=== PATIENT | female | born 1950 | race Caucasian/White ===

== ENCOUNTER 2019-07-15 12:38 | Emergency (ER) | payer MEDICARE, SELFPAY ==
[2019-07-15 12:43] VITALS: BP 210/99; PULSE 75; RESP 17; TEMP 36.6; O2SAT 99; BMI 21.6
--- NOTE | 2019-07-15 13:04 | CTR_ITS ---
PROCEDURE INFORMATION: Exam: CT Head Without Contrast Exam date and time: 07/15/2019 1:16 PM Age: 69 years old Clinical indication: Dizziness; Patient HX: Vertigo x 1 month; Additional info: High BP, dizzy TECHNIQUE: Imaging protocol: Computed tomography of the head without contrast. Total DLP: 750.25 mGy-cm Radiation optimization: All CT scans at this facility use at least one of these dose optimization techniques: automated exposure control; mA and/or kV adjustment per patient size (includes targeted exams where dose is matched to clinical indication); or iterative reconstruction. COMPARISON: CTA Head [id number] 11/04/2014 10:43 AM FINDINGS: Brain: No acute intracranial hemorrhage, cerebral edema, or midline shift. Ventricles: No hydrocephalus. Bones/joints: No acute fracture. Sinuses: No acute sinusitis. Mastoid air cells: Visualized mastoid air cells are well aerated. Soft tissues: Unremarkable. CT/CT head wo con* [id number] IMPRESSION: No acute intracranial abnormality. Radiation Dose CTDIVOL = (mGy): DLP = 750.25 (mGy-cm)
--- NOTE | 2019-07-15 13:04 | XR_ITS ---
WS: [id number] Portable AP upright chest, 07/15/2019 Clinical Data: high bp, dizzy Comparison: Portable chest, 03/28/2018. Findings: No nodules, masses or effusions are seen. The heart is normal. The pulmonary vascularity is not increased. No pneumonia or pneumothorax is seen. The aortic arch is slightly tortuous. XR/XR chest 1V portable [id number] Impression: Atherosclerosis.
--- NOTE | 2019-07-15 13:05 | ECG_ITS ---
Measurements Intervals [place] Rate: 67 P: 69 OR: 139 QRS: 51 QRSD: 94 T: 48 QT: 390 QTc: [address] DEPRESSION [0.05+ mV ST DEPRESSION] Compared to ECG 03/28/2018 19:44:15 ST (T wave) deviation now present Sinus tachycardia no longer present T-wave abnormality no longer present Electronically Signed On 07-15-2019 22:16:50 [employer] OPERATOR by Evelyne Deal M.D. [email or web address]
[2019-07-15 13:55] LABS: Add Urine Microscopic? YES; Bilirubin Urine Neg (NEGATIVE); Blood Urine 3+ (Negative); Glucose Urine UA Norm (Normal); Ketones Urine Negative (Negative); Leukocyte Esterase Urine Negative (Negative); Nitrate Urine Negative (Negative); Protein Urine Neg (Negative); Specific Gravity, Urine 1.015 (1.005-1.030); Urine Appearance Clear (CLEAR); Urine Color Yellow (Yellow); Urobilinogen Urine Norm (Negative)
[2019-07-15 13:58] LABS: Add Urine Culture? Yes; Bacteria Urine 1+; Mucus Urine TRACE; RBC Urine 25-40 /hpf (0-2); Squamous Epithelial Cell Urine 0-4 (0-5); WBC Urine 15-25 /hpf (0-5)
[2019-07-15 14:15] LABS: Basophils % 0.7 %; Eosinophils # 0.1 10^3/uL (0.0-0.8); Eosinophils % 2.2 %; Hematocrit 39.6 % (37.0-47.0); Hemoglobin 12.9 g/dL (11.5-15.3); Lymphocytes # 1.5 10^3/uL (0.8-4.8); Lymphocytes % 27.8 %; Mean Corpuscular HGB Conc 32.6 g/dL (30.0-36.0); Mean Corpuscular Hemoglobin 30.1 pg (28.0-34.0); Mean Corpuscular Volume 92.3 fL (81-99); Mean Platelet Volume 9.8 fL (7.4-10.4); Monocytes # 0.3 10^3/uL (0.2-0.9); Monocytes % 6.2 %; Neutrophils # 3.4 10^3/uL (1.8-7.7); Neutrophils % 62.9 %; Nucleated Red Blood Cells % 0 %; Platelet Count 219 10^3/cmm (130-400); Red Blood Count 4.29 10^6/uL (4.1-5.3); Red Cell Distribution Width 12.2 % (12.1-15.1); White Blood Count 5.5 10^3/uL (4.0-10.0)
--- NOTE | 2019-07-15 14:16 | ED_ITS ---
Entered by Tali Blum, acting as scribe for Chaya Olea DO Jul 15, 2019 12:38 HPI - General Adult General: Chief complaint: General Medical Stated complaint: high bp Time Seen by Provider: 07/15/19 14:13 Source: patient Mode of arrival: ambulatory Limitations: no limitations History of Present Illness: HPI narrative: 69 yo Female presents to ED with complaint of dizziness and elevated blood pressure. Pt states that she has vertigo and for the past several weeks when she tries to get up in the morning she cannot get up due to her dizziness. Pt states that she noticed the past day or so that her blood pressure has been creeping up. Pt states that she is not on anything for her vertigo. Pt states that she has optic neuropathy and she goes to see Dr. Mayfield for a follow up next month. MD complaint: elevated blood pressure Onset (ago): day(s) Location: head Radiation: non-radiation Relieving factors: none Exacerbating factors: movement Associated symptoms: Deny chest pain, dyspnea, headache(s), malaise, nausea, rash or vomiting Review of Systems Const: Denies: fever, chills, change in appetite or malaise Eyes: Denies: change in vision, blurry vision, eye discharge or eye redness ENMT: Denies: throat pain, uvular edema, painful swallowing, mouth pain, dental pain, nasal congestion or facial/sinus pain Card: Denies: chest pain, irregular heart rhythm, swelling of feet/ankles, shortness of breath on exertion, shortness of breath when lying down or leg pain with exertion Resp: Denies: shortness of breath, productive cough, wheezing or coughing up blood GI: Denies: abdominal pain, nausea, vomiting, diarrhea, constipation or fecal incontinence : Denies: flank pain, difficulty urinating, painful urination, urinary frequency, urinary urgency or urinary hesitancy Musc: Denies: neck pain, back pain, extremity pain or extremity swelling Skin/Breast: Denies: rash, itching, redness, yellow skin or dry skin Neuro: Denies: headache, numbness in extremities, weakness in extremities, changes in sensation, lack of coordination or difficulty walking Psych: Denies: anxiety, depression, mood swings, panic attacks, sleeping less, suicidal ideation or homicidal ideation Endo: Denies: excessive urination, excessive thirst or tired all the time Malachi/Lymph: Denies: easy bruising, petechiae or enlarged lymph nodes All/Imm: Denies: hives, throat swelling, facial swelling, acute wheezing or seasonal allergies PFSH ED PFSH: Statuses (acute, chronic, etc) shown below reflect problem list status as previously entered and may not be historically accurate Medical History (Updated 07/15/19 @ 14:42 by Chaya Olea DO) Optic neuropathy (Acute) Social History Smoking and tobacco status: never smoked Physical Exam Const: COMMON NORMALS: no apparent distress, oriented x3, no limitations, healthy appearing, alert and well nourished GENERAL APPEARANCE: cooperative, comfortable, well kempt and well developed ORIENTATION/CONSCIOUSNESS: Yes awake, Yes oriented to person, Yes oriented to place and Yes oriented to time HENMT: COMMON NORMALS: normocephalic, head/scalp atraumatic, hearing grossly normal bilaterally, external ears normal, EAC's normal, TM's normal bilaterally, external nose normal, nasal mucous membranes and turbinates normal, moist oral mucous membranes, oropharynx normal, dentition normal and gingiva normal HEAD & SCALP: normal to inspection, normocephalic and atraumatic FACE & SINUS: normal facial exam NOSE: external nose normal and nasal mucous membranes and turbinates normal EXTERNAL EAR: Yes external ears normal EXTERNAL AUDITORY CANAL: EAC's normal TYMPANIC MEMBRANE: TM's normal bilaterally MOUTH: oral and palatal mucosa normal, lip normal and tongue normal THROAT: no uvular edema Eye: COMMON NORMALS: PERRL, EOMs intact bilaterally, conjunctivae normal, no scleral icterus and normal visual [place] by confrontation GENERAL EYE: normal appearance of both eyes and normal light reflex VISUAL ACUITY: Yes acuity normal ALIGNMENT: Yes alignment normal PERIORBITAL: periorbital findings normal EYELID: eyelids normal CONJUNCTIVA: Yes conjunctivae normal SCLERA: sclerae normal PUPIL: Yes PERRL and Yes accommodation reflex normal DIRECT OPHTHALMOSCOPY: Yes normal light reflex Neck/C-Spine: COMMON NORMALS: full ROM, no lymphadenopathy, supple, no meningeal signs and no JVD GENERAL: Yes normal visual inspection CAROTIDS: Yes normal carotid upstroke CERVICAL SPINE: Yes cervical ROM normal Lymph: LYMPHATIC: no lymphadenopathy noted Chest: COMMONS NORMALS: inspection of chest normal CHEST: Yes symmetrical chest wall rise Resp: COMMON NORMALS: normal respiratory effort, no retractions, no use of accessory muscles and clear to auscultation bilaterally EFFORT & INSPECTION: Yes able to speak in complete sentences and Yes symmetric chest movement AUSCULTATION: clear to auscultation bilaterally Cardio: COMMON NORMALS: no JVD, regular rate, regular rhythm, S1 normal heart sound, S2 normal heart sound, no murmurs and peripheral pulses 2+ throughout RATE: regular rate RHYTHM: regular rhythm HEART SOUNDS: S1 normal and S2 normal PERIPHERAL PULSES: pulses 2+ throughout GI: COMMON NORMALS: normal to inspection, nondistended, normoactive bowel sounds and non-tender : COMMON NORMALS: Yes no CVA tenderness BLADDER/KIDNEY EXAM: Yes no CVA tenderness Back/Pelvis: COMMON NORMALS: no CVA tenderness, thoracic and lumbar spine normal to inspection, no thoracic nor lumbar tenderness and thoraco-lumbar ROM normal Extremity: COMMON NORMALS: normal to inspection, full ROM, normal capillary refill, no calf tenderness and no pedal edema Neuro: COMMON NORMALS: oriented x3, CN's II-XII intact bilaterally, moves all extremities, no focal motor deficits, no sensory deficits noted and gait normal SENSORIUM/ORIENTATION: Yes alert, Yes oriented to person, Yes oriented to place and Yes oriented to time MENINGEAL SIGNS: Yes no meningeal signs SPEECH: speech normal GAIT: Yes normal gait MOTOR EXAM: strength 5/5 throughout, no pronator drift and no tremor noted Psych: COMMON NORMALS: mental status grossly normal, thought process normal, cooperative, affect normal, speech normal and activity/motor behavior normal APPEARANCE: Yes well kempt SPEECH: Yes normal speech THOUGHT PROCESS: normal thought process THOUGHT CONTENT: Yes normal thought content INSIGHT: insight good Skin: COMMON NORMALS: no rashes or lesions noted, no wounds, skin turgor normal and no jaundice GENERAL SKIN EXAM: no rashes or lesions noted and turgor normal Course ED course: After PO Hydralazine BP 177/78. Patient resting after valium. Labs wnl, will treat with prn Clonidine and valium, advised close PCP follow up and discuss MR head as needed. Vital Signs: Vital signs: Vital Signs Temperature 97.8 F 07/15/19 12:43 Pulse Rate 75 02/07/20 12:43 Respiratory Rate 17 07/15/19 12:43 Blood Pressure 210/99 07/15/19 12:43 Pulse Oximetry 99 07/15/19 12:43 MDM - General Adult Differential Diagnosis: Differential Diagnosis: CVA, vertigo, HTN emergency or urgency, cerebral lesion. 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 Discussed need to do this out patient as her symptoms have worsened over the past few weeks and concern for lesion is in my differential Lab Data: Labs: Lab Results 07/15/19 07/15/19 07/15/19 Range/Units 13:23 13:55 13:55 WBC 5.5 (4.0-10.0) 10^3/ uL RBC 4.29 (4.1-5.3) 10^6/u L Hgb 12.9 (11.5-15.3) g/dL Hct 39.6 (37.0-47.0) % MCV 92.3 (81-99) fL MCH 30.1 (28.0-34.0) pg MCHC 32.6 (30.0-36.0) g/dL RDW 12.2 (12.1-15.1) % Plt Count 219 (130-400) 10^3/c mm MPV 9.8 (7.4-10.4) fL Neut % (Auto) 62.9 % Lymph % (Auto) 27.8 % [place] % (Auto) 6.2 % Eos % (Auto) 2.2 % Baso % (Auto) 0.7 % Neut # (Auto) 3.4 (1.8-7.7) 10^3/u L Lymph # (Auto) 1.5 (0.8-4.8) 10^3/u L [place] # (Auto) 0.3 (0.2-0.9) 10^3/u L Eos # (Auto) 0.1 (0.0-0.8) 10^3/u L Baso # (Auto) 0.0 (0.0-0.1) 10^3/u L Nucleated RBC % (a uto) 0 % Nucleated RBCs # 0.0 /100WBC Sodium 143 (136-145) mmol/L Potassium 4.4 (3.5-5.1) mmol/L Chloride 108 H (98-107) mmol/L Carbon Dioxide 26 (22-29) mmol/L Anion Gap 13.4 (5-19) BUN 19 (8-23) mg/dL Creatinine 0.9 (0.5-0.9) mg/dL GFR Calculation 62.3 L (90-130) mL/min Glucose 111 (65-115) mg/dL Calcium 9.4 (8.5-10.5) mg/dL Total Bilirubin 0.3 (0.15-1.2) mg/dL AST 22 (0-32) U/L ALT 13 (0-33) U/L Alkaline Phosphata se 96 (35-105) IU/L Troponin T Baselin e (0-10) ng/mL NT-Pro-B Natriuret Pep 249 H (0-125) pg/mL Total Protein 7.4 (6.6-8.7) g/dL Albumin 4.3 (3.5-5.2) g/dL Globulin 3.1 (1.3-4.6) g/dL Urine Color Yellow (Yellow) Urine Appearance Clear (CLEAR) Urine pH 6.0 (5-7) Ur Specific Gravit y 1.015 (1.005-1.030) Urine Protein Neg (Negative) Urine Glucose (UA) Norm (Normal) Urine Ketones Negative (Negative) Urine Occult Blood 3+ H (Negative) Urine Nitrate Negative (Negative) Urine Bilirubin Neg (NEGATIVE) Urine Urobilinogen Norm (Negative) mg/dL Ur Leukocyte Lilly ase Negative (Negative) Urine RBC 25-40 H (0-2) /hpf Urine WBC 15-25 H (0-5) /hpf Ur Squamous Epith Cells 0-4 H (0-5) Urine Bacteria 1+ H (NONE) Urine Mucus Trace 07/15/19 Range/Units 13:55 WBC (4.0-10.0) 10^3/ uL RBC (4.1-5.3) 10^6/u L Hgb (11.5-15.3) g/dL Hct (37.0-47.0) % MCV (81-99) fL MCH (28.0-34.0) pg MCHC (30.0-36.0) g/dL RDW (12.1-15.1) % Plt Count (130-400) 10^3/c mm MPV (7.4-10.4) fL Neut % (Auto) % Lymph % (Auto) % [place] % (Auto) % Eos % (Auto) % Baso % (Auto) % Neut # (Auto) (1.8-7.7) 10^3/u L Lymph # (Auto) (0.8-4.8) 10^3/u L [place] # (Auto) (0.2-0.9) 10^3/u L Eos # (Auto) (0.0-0.8) 10^3/u L Baso # (Auto) (0.0-0.1) 10^3/u L Nucleated RBC % (a uto) % Nucleated RBCs # /100WBC Sodium (136-145) mmol/L Potassium (3.5-5.1) mmol/L Chloride (98-107) mmol/L Carbon Dioxide (22-29) mmol/L Anion Gap (5-19) BUN (8-23) mg/dL Creatinine (0.5-0.9) mg/dL GFR Calculation (90-130) mL/min Glucose (65-115) mg/dL Calcium (8.5-10.5) mg/dL Total Bilirubin (0.15-1.2) mg/dL AST (0-32) U/L ALT (0-33) U/L Alkaline Phosphata se (35-105) IU/L Troponin T Baselin e 7 (0-10) ng/mL NT-Pro-B Natriuret Pep (0-125) pg/mL Total Protein (6.6-8.7) g/dL Albumin (3.5-5.2) g/dL Globulin (1.3-4.6) g/dL Urine Color (Yellow) Urine Appearance (CLEAR) Urine pH (5-7) Ur Specific Gravit y (1.005-1.030) Urine Protein (Negative) Urine Glucose (UA) (Normal) Urine Ketones (Negative) Urine Occult Blood (Negative) Urine Nitrate (Negative) Urine Bilirubin (NEGATIVE) Urine Urobilinogen (Negative) mg/dL Ur Leukocyte Lilly ase (Negative) Urine RBC (0-2) /hpf Urine WBC (0-5) /hpf Ur Squamous Epith Cells (0-5) Urine Bacteria (NONE) Urine Mucus Imaging Data^: CT Head: Radiologist's impression: [place] [address] CT Scan Report Signed Patient: Zuleyma Hilton #: [id number] : [id number]#:[id number] Age/Sex: 69 / FADM Date: 07/15/19 Loc: ERRoom/Bed: Attending Dr: Ordering Provider/Ordering MD: Gilberto Putnam NP Date of Service: 07/15/19 Procedure(s): CT head wo con* [id number] Accession Number(s): [id number] Report Number: [id number] PROCEDURE INFORMATION: Exam: CT Head Without Contrast Exam date and time: 07/15/2019 1:16 PM Age: 69 years old Clinical indication: Dizziness; Patient HX: Vertigo x 1 month; Additional info: High BP, dizzy TECHNIQUE: Imaging protocol: Computed tomography of the head without contrast. Total DLP: 750.25 mGy-cm Radiation optimization: All CT scans at this facility use at least one of these dose optimization techniques: automated exposure control; mA and/or kV adjustment per patient size (includes targeted exams where dose is matched to clinical indication); or iterative reconstruction. COMPARISON: CTA Head [id number] 11/04/2014 10:43 AM FINDINGS: Brain: No acute intracranial hemorrhage, cerebral edema, or midline shift. Ventricles: No hydrocephalus. Bones/joints: No acute fracture. Sinuses: No acute sinusitis. Mastoid air cells: Visualized mastoid air cells are well aerated. Soft tissues: Unremarkable. CT/CT head wo con* [id number] IMPRESSION: No acute intracranial abnormality. Radiation Dose CTDIVOL = (mGy): DLP = 750.25 (mGy-cm) Dictated By:Abdoulaye Hough MD Signed By:Abdoulaye Hough MDSigned Date/Time:07/15/19 1346 DD/ 1345 CXR: Radiologist's impression: [address] [address] XRay Report Signed Patient: Zuleyma Hilton #: [id number] : [id number]#:[id number] Age/Sex: 69 / FADM Date: 07/15/19 Loc: ERRoom/Bed: Attending Dr: Ordering Provider/Ordering MD: Gilberto Putnam NP Date of Service: 07/15/19 Procedure(s): XR chest 1V portable [id number] Accession Number(s): [id number] Report Number: [id number] WS: [id number] Portable AP upright chest, 07/15/2019 Clinical Data: high bp, dizzy Comparison: Portable chest, 03/28/2018. Findings: No nodules, masses or effusions are seen. The heart is normal. The pulmonary vascularity is not increased. No pneumonia or pneumothorax is seen. The aortic arch is slightly tortuous. XR/XR chest 1V portable [id number] Impression: Atherosclerosis. Dictated By:Janette Devlin MD Signed By:Janette Devlin MDSigned Date/Time:07/15/19 133 DD/ 133 Discharge Plan Discharge Patient Disposition: Home, Self-Care Clinical Impression: Vertigo, Postural dizziness Hypertension Qualifiers: Hypertension type: unspecified Qualified Code(s): I10 - Essential (primary) hypertension Condition: Stable Prescriptions: New clonidine HCl 0.1 mg tablet 0.1 mg PO TID Qty: 30 RF: 0 Valium 5 mg tablet 5 mg PO TID PRN (Reason: vertigo) Qty: 20 RF: 0 Discharge Orders: Discharge Order (Routine); Ordered 07/15/19 Ordered By: Chaya Olea Referrals: Karlo Ennis DO [Family Provider] - Discharge Diet: Usual diet Discharge Activity: Resume usual activity Patient Instructions: Benign Paroxysmal Positional Vertigo (ED), Hypertension (ED), Dizziness (ED) Coding Level of Care Code ED Car Hop for Chg Fwd Exam Problem Focused The documentation recorded by the Viktoria rico Carmen, accurately reflects the service I personally performed and the decisions made by Emmie heredia Amanda, DO Jul 15, 2019 12:38
[2019-07-15 14:27] LABS: Troponin(5th) Baseline 7 ng/mL (0-10)
[2019-07-15 14:34] LABS: Alanine Aminotransferase 13 U/L (0-33); Albumin Level 4.3 g/dL (3.5-5.2); Alkaline Phosphatase 96 IU/L (35-105); Anion Gap 13.4 (5-19); Aspartate Amino Transferase 22 U/L (0-32); Blood Urea Nitrogen 19 mg/dL (8-23); Calcium 9.4 mg/dL (8.5-10.5); Carbon Dioxide 26 mmol/L (22-29); Chloride 108 mmol/L (98-107); Creatinine Clr Calc Pharmacy 54.5764; Globulin 3.1 g/dL (1.3-4.6); Glomerular Filtration Rate 62.3 mL/min (90-130); Glucose 111 mg/dL (65-115); NT Pro B Type Natriuretic Pept 249 pg/mL (0-125); Potassium 4.4 mmol/L (3.5-5.1); Sodium 143 mmol/L (136-145); Total Bilirubin 0.3 mg/dL (0.15-1.2); Total Protein 7.4 g/dL (6.6-8.7)
[2019-07-15] MEDS: hyDRALAzine 10 mg Tablet PO (14:34)
[2019-07-15 15:21] LABS: Magnesium 2.1 mg/dL (1.7-2.3); Thyroid Stimulating Hormone 4.32 uIU/mL (0.27-4.20)
[2019-07-15 15:26] VITALS: BP 177/78; PULSE 65; RESP 18; O2SAT 97
--- NOTE | 2019-07-15 19:05 | ECG_ITS ---
Measurements Intervals [place] Rate: 64 P: 67 RI: 138 QRS: 52 QRSD: 90 T: 48 QT: 406 QTc: [address] DEPRESSION [0.05+ mV ST DEPRESSION] Compared to ECG 03/28/2018 19:44:15 ST (T wave) deviation now present Sinus tachycardia no longer present T-wave abnormality no longer present Electronically Signed On 07-15-2019 22:19:44 MENTAL HEALTH PROFESSIONAL by Evelyne Deal M.D. [email or web address]
== END 2019-07-15 15:18 | disposition home or self-care (01) ==
PROVIDERS: Nurse Practitioner Family; Emergency Provider Emergency Medicine; Family Provider Electrodiagnostic Medicine
DX: R42 Dizziness and giddiness (principal); I10 Essential (primary) hypertension
CPT/HCPCS: 36415; 70450; 71045; 80053; 81001; 83735; 83880; 84443; 84484; 85025; 87086; 93005; 99282; 99284; A9270

== ENCOUNTER 2019-12-27 08:26 | Outpatient (CLI) | payer MEDICARE, SELFPAY ==
--- NOTE | 2019-12-27 08:15 | XRR_ITS ---
PROCEDURE INFORMATION: Exam: XR Abdomen, 1 View Exam date and time: 12/27/2019 8:42 AM Age: 69 years old Clinical indication: Condition or disease; Kidney or ureter condition; Calculus (stone) in kidney; Patient HX: Follow up kidney stone TECHNIQUE: Imaging protocol: XR of the abdomen. Views: Frontal supine view of the abdomen. 1 View. COMPARISON: CR XR KUB [id number] 12/23/2018 9:02 AM FINDINGS: Gastrointestinal tract: bowel gas pattern is nonspecific. Air filled large bowel including distal rectal gas. Moderate amount stool throughout the large bowel. Organs: Rounded calcification 8 mm in the region of the upper pole left kidney. Bones/joints: Calcification of approximately 8 mm adjacent to the transverse process of L4. Possibly of ureteric origin. Consider CT if indicated. XR/XR KUB [id number] IMPRESSION: 1. Bowel gas pattern is nonspecific. Air filled large bowel including distal rectal gas. 2. Moderate amount stool throughout the large bowel. 3. Calcification of approximately 8 mm adjacent to the transverse process of L4. Possibly of ureteric origin. Consider CT if indicated. 4. Rounded calcification 8 mm in the region of the upper pole left kidney.
== END 2019-12-27 08:27 | disposition home or self-care (01) ==
PROVIDERS: Family Provider Electrodiagnostic Medicine; PCP Electrodiagnostic Medicine; Visit Provider Urology
DX: N20.0 Calculus of kidney (principal)
CPT/HCPCS: 74018; 81001

== ENCOUNTER 2020-01-02 12:36 | Outpatient (CLI) | payer MEDICARE, SELFPAY ==
--- NOTE | 2020-01-02 12:45 | US_ITS ---
WS: [id number] ULTRASOUND RENAL TECHNIQUE: Ultrasound examination of both kidneys. CLINICAL INFORMATION: Stones COMPARISON: None. FINDINGS: RIGHT: Right kidney is normal in size and appearance. Right inferior pole cyst measuring 2.1 x 1.4 x 2.1 cm Echogenicity: Normal. Cortical thickness: 1.0 cm; Normal. Hydronephrosis: None. Perinephric fluid: None. Right kidney measures: 10.0 cm x 4.5 cm x 3.9 cm. LEFT: Left kidney is normal in size and appearance. Echogenicity: Normal. Cortical thickness: 1.3 cm; Normal. Hydronephrosis: Moderate Perinephric fluid: None. Left kidney measures: 9.3 cm x 3.9 cm x 4.3 cm. Normal visualized aorta. US/US renal BI* [id number] IMPRESSION: 1. Moderate left hydronephrosis with dilatation of the renal pelvis and partia lly visualized proximal ureter. This can be further evaluated with CT. 2. No hydronephrosis in right kidney. 3. Diffuse bladder wall thickening with partial decompressed bladder can be se en with chronic cystitis. 4. Right inferior pole renal cyst measuring 2.1 x 2.1 cm
--- NOTE | 2020-01-02 13:00 | XRR_ITS ---
PROCEDURE INFORMATION: Exam: XR Abdomen, 1 View Exam date and time: 01/02/2020 1:28 PM Age: 69 years old Clinical indication: Condition or disease; Kidney or ureter condition; Other: Stones TECHNIQUE: Imaging protocol: XR of the abdomen. Views: Frontal supine view of the abdomen. 1 View. COMPARISON: CR XR KUB [id number] 12/27/2019 8:36 AM FINDINGS: Gastrointestinal tract: There is stool throughout the colon. No bowel obstruction or wall thickening. Organs: There is calcification in the superior left kidney as before. Bones/joints: Unremarkable. XR/XR KUB [id number] IMPRESSION: There are no acute concerning abnormalities.
== END 2020-01-02 12:37 | disposition home or self-care (01) ==
LOC: RAD 12:38
PROVIDERS: Family Provider Electrodiagnostic Medicine; PCP Electrodiagnostic Medicine; Visit Provider Urology
DX: N20.0 Calculus of kidney (principal); N28.1 Cyst of kidney, acquired; N13.30 Unspecified hydronephrosis
CPT/HCPCS: 74018; 76770; 81001

== ENCOUNTER 2020-01-09 13:35 | Day surgery (SDC) | payer MEDICARE, SELFPAY ==
[2020-01-09] VITALS (7 sets, daily range): BP systolic 147–169; BP diastolic 72–81; PULSE 55–71; RESP 13–20; TEMP 36.2–36.6; O2SAT 98–100
--- NOTE | 2020-01-09 13:22 | XRR_ITS ---
PROCEDURE INFORMATION: Exam: XR Abdomen, 1 View Exam date and time: 01/09/2020 1:37 PM Age: 69 years old Clinical indication: Screening exam; Other: Pre op eswl; Additional info: Preop eswl TECHNIQUE: Imaging protocol: XR of the abdomen. Views: Frontal supine view of the abdomen. 1 View. COMPARISON: CR XR KUB [id number] 01/02/2020 1:23 PM FINDINGS: Gastrointestinal tract: Normal. No bowel dilation. Organs: There are multiple urinary tract stones present in the upper pole collecting system of the left kidney a stone is present measuring 5.6 mm. In the left ureter 2 stones are present at the level of the L4 transverse process on the left measuring 5 mm and 8.5 mm. Comparison to prior examination the upper pole caliceal stone in the left kidney was present and appears similar. There was 1 stone in the left ureter measuring 8.3 mm near the left L4 transverse process. Bones/joints: Unremarkable. XR/XR KUB [id number] IMPRESSION: 1. Multiple urinary tract stones as described. 2. Negative for acute GI abnormalities. 3. Unremarkable bones
[2020-01-09] MEDS: sodium chloride 0.9% 1,000 ML 30 ML IV (13:58)
--- NOTE | 2020-01-09 14:02 | ANES.PREANE2 ---
Pre-Anesthetic Assessment Pre-Anesthetic Assessment: Height/Weight: Height 1.65 m Weight 61.235 kg Temp Pulse Resp BP Pulse Ox 98 F 65 18 169/77 99 01/09/20 13:45 01/09/20 13:45 01/09/20 13:45 01/09/20 13:45 01/09/20 13:45 Preop Diagnosis: Left ureteral and renal stone Proposed Procedure: Operation Date: 01/09/20 14:40 Proposed Procedures p Cystoscopy 91858 [id number] 51020 N20.1(Left) - Deepak Moraes MD s Retrograde Pyelogram(Left) - Deepak Moraes MD s ESWL(Not Applicable) - Deepak Moraes MD Familial anesthetic complications: none Was Beta Tashia taken within 24 hours: Yes Last intake: Intake Last Liquid Date 01/09/20 Last Liquid Time 10:00 (gatorade) Last Solid Date 01/09/20 Last Solid Time 07:00 (jello) Social: Social History: No alcohol and No tobacco Exam: Pre-Anes Outpt Exam: alert, oriented x 3, clear to auscultation bilaterally and regular rate & rhythm Airway: Cervical ROM: WNL MP: 3 Dentition: Full Pulmonary: Pulmonary: None reported CV/HEM: CV/HEM: HTN : : None reported Hepatic: Hepatic: None reported GI: GI: GERD and Hiatus hernia Musc/skel: Musc/skel: None reported Neuropsych: Comments: optic neuropathy (HTN) Anesthetic Plan: ASA status: 2 Anesthesia: General Risk of > 500 ml blood loss (7ml/kg in children): No Meds/Allergies Current Medications: Current Medications Generic Name Dose Route Start Last Admin Trade Name Freq PRN Reason Stop Dose Admin Sodium Chloride 1,000 mls @ 30 ml s/hr 01/09/20 13:30 01/09/20 13:58 Sodium Chloride 0.9% IV 01/10/20 13:29 30 mls/hr .Q24H KALE Administration PFSH Anesthesia PFSH: Medical History Arthritis Left ureteral calculus Optic neuropathy Renal calculus Status post extracorporeal shock wave therapy Surgical History H/O dilation and curettage History of hysterectomy Family History Father , in his 70's Myocardial infarction (lateral wall) Mother , at age 83 Cancer oral Social History Smoking and tobacco status: never smoked Alcohol intake: never Marital status: Current occupational status: retired History of recent travel: No Data Anesthesia Cardiac Studies: No Data to Display
--- NOTE | 2020-01-09 14:38 | W.PM.OPSUD ---
Surgery/Procedure H&P Update DATE OF PROCEDURE: January 09, 2020 DATE H&P PERFORMED: 01/02/20 H&P UPDATE INFORMATION: I have reviewed H&P completed within last 30 days, I have examined patient prior to procedure, No changes to prior documentation and H&P is in [facility] [place] date indicated PREOP DIAGNOSIS: Left ureteral and renal stone PLANNED PROCEDURE: Operation Date: 01/09/20 14:40 Proposed Procedures p Cystoscopy 16643 68165 26453 N20.1(Left) - Deepak Moraes MD s Retrograde Pyelogram(Left) - Deepak Moraes MD s ESWL(Not Applicable) - Deepak Moraes MD
[2020-01-09] MEDS: levofloxacin-dextrose 5 % 500 MG/100 ML PREMIX 100 MG IV (14:45)
[2020-01-09] MEDS: iohexol 300 mg/mL 50 mL Btl (OR ONLY) XX (15:05)
--- NOTE | 2020-01-09 16:06 | PM.OP ---
Operative Report Date of procedure: January 09, 2020 Pre-op Diagnosis: Left ureteral and renal stone Post-op diagnosis: same Procedure Done: 1. Cystoscopy with left retrograde ureteropyelogram 2. Left ureteral stent placement (4.7 x 26 cm double-pigtail without string) 3. Extracorporeal shockwave lithotripsy to left mid ureteral stones Implants: Left ureteral stent Pathology: none sent Surgeon: Dimitry Client Experience Consultant: Opdyke Anesthesia: General Estimated blood loss: None Urine output: Not measured Complications: None Condition: stable Disposition: PACU Brief History: Mrs. Hilton is a very pleasant 69-year-old white female with a known history of urolithiasis who recently presented with left renal colicky type symptoms and was found to have a moderate sized stone measuring close to 9 mm in the left mid ureter. That same stone had previously been seen in the area of the left kidney but was much smaller at that time. Follow-up KUB showed the stone was not progressing and an ultrasound confirmed left hydronephrosis and ultimately she chose to proceed with definitive treatment. Procedure: After routine preoperative evaluation examination and obtaining of informed consent she was taken to the operating suite on 01/09/2020 where general anesthesia was administered without difficulty after appropriate timeout was performed, SCDs confirmed to be functioning, preoperative antibiotics administered, beta-sandra protocol confirmed. Prepped and draped in usual sterile fashion in dorsolithotomy position pain careful attention to avoiding pressure points. 21 Guyanese cystoscope with 30 degree lens was introduced into the urethral meatus and advanced into the bladder under videoscopy. Bladder was systematically examined and found to be within normal limits. There were no stones. An 8 Guyanese cone-tipped catheter was intubated into the left ureteral orifice for left retrograde ureteropyelogram which showed normal course and caliber of the ureter up to the level of the stones which were confirmed to be intraureteral with high-grade obstruction. Some contrast was able to be forced proximal to the stones into the dilated ureter into the collecting system of the kidney. A flexible tip guidewire was then passed with some hang up at the stones but then popping proximal to the stones and curling in the area of the renal pelvis confirmed with fluoroscopy and contrast previously injected. A 6 Guyanese open-ended ureteral catheter was then attempted to be advanced beyond the stones were try to loosen them up but could not be easily advanced. A 4.7 Guyanese by 26 cm double-pigtail stent was then advanced over the guidewire easily bypassing the stones and curling in the appropriate position in the left renal pelvis. The stent was confirmed to be draining. The bladder was drained and the cystoscopic portion of the procedure completed. She was then repositioned on the Dornier unit in supine position with a shock head positioned posteriorly with a focal point on the ureteral stone which was easily identified with fluoroscopy. A total of 3000 shocks was administered to the stone with real-time fluoroscopy used to guide position changes as indicated. There was good change in the character of the stone. The first half of the shockwave therapy was given with the shock head positioned posteriorly and the second half with a shock head positioned anteriorly. The contrast would have been retained in the kidney and proximal ureter drained well at about [facility] through the shockwave procedure. She tolerated the procedure well without complications and was awakened in the operating room and returned to the recovery in stable condition. PLANS: 1. Maintain ureteral stent. Follow-up sometime next week with KUB. Consider stent removal at that time or potentially add additional time for healing of the impacted area.
--- NOTE | 2020-01-09 17:20 | SUR.PHASEII ---
Phone call to Dr. Vasquez office which was closed. Patient needs a one week follow up with a Kub. Orders faxed to Dr. Moraes's office, addmissions, and centralized scheduling.
== END 2020-01-09 17:39 | disposition home or self-care (01) ==
LOC: OR 18:23
PROVIDERS: Family Provider Electrodiagnostic Medicine; PCP Electrodiagnostic Medicine; Visit Provider Urology
PROC: 0TJB8ZZ Inspection of Bladder, Via Natural or Artificial Opening Endoscopic (ICD-10-PCS; CPT 52000; principal; 2020-01-09 14:40)
PROC: (CPT 74420; 2020-01-09 14:40)
PROC: (CPT 50590; 2020-01-09 14:40)
PROC: (CPT 50605; 2020-01-09 14:40)
DX: N20.2 Calculus of kidney with calculus of ureter (principal); I10 Essential (primary) hypertension; M19.90 Unspecified osteoarthritis, unspecified site
CPT/HCPCS: 50590; 52332; 12345; 74018; C2625; J1100; J1956; J2405; J2704; J2710; J3010; J3490; J7030

== ENCOUNTER 2020-01-17 07:35 | Outpatient (CLI) | payer MEDICARE, SELFPAY ==
--- NOTE | 2020-01-17 07:37 | XRR_ITS ---
PROCEDURE INFORMATION: Exam: XR Abdomen, 1 View Exam date and time: 01/17/2020 7:53 AM Age: 69 years old Clinical indication: Condition or disease; Kidney or ureter condition; Calculus (stone) in kidney; Prior surgery; Surgery type: Cysto TECHNIQUE: Imaging protocol: XR of the abdomen. Views: Frontal supine view of the abdomen. 1 View. COMPARISON: CR XR KUB [id number] 01/09/2020 1:34 PM FINDINGS: Gastrointestinal tract: The bowel gas pattern is nonspecific. Air filled large bowel including distal rectal gas. Organs: Double-J ureteric stent on the left with the proximal pigtail formed within the renal pelvis and the distal pigtail within the urinary bladder. Calcification upper pole left kidney 6 mm Bones/joints: Calcification adjacent to the double-J ureteric stent at the level of the transverse process of L4 XR/XR KUB [id number] IMPRESSION: The bowel gas pattern is nonspecific. Air filled large bowel including distal rectal gas.
== END 2020-01-17 07:36 | disposition home or self-care (01) ==
LOC: RAD 07:35
PROVIDERS: Family Provider Electrodiagnostic Medicine; PCP Electrodiagnostic Medicine; Visit Provider Urology
DX: N20.1 Calculus of ureter (principal); N20.0 Calculus of kidney
CPT/HCPCS: 74018; 80053; 81001

== ENCOUNTER 2020-01-20 10:16 | Outpatient (CLI) | payer MEDICARE, SELFPAY ==
--- NOTE | 2020-01-20 08:00 | XRR_ITS ---
PROCEDURE INFORMATION: Exam: XR Abdomen, 1 View Exam date and time: 01/20/2020 10:32 AM Age: 69 years old Clinical indication: Condition or disease; Kidney or ureter condition; Calculus (stone) in kidney; Prior surgery; Surgery type: Lithotripsy; Stent; Patient HX: Pain in left abd when standing. Follow up stone TECHNIQUE: Imaging protocol: XR of the abdomen. Views: Frontal supine view of the abdomen. 1 View. COMPARISON: CR XR KUB [id number] 01/17/2020 7:41 AM FINDINGS: Gastrointestinal tract: bowel gas pattern is nonspecific. Air filled large bowel including distal rectal gas. Scattered loops of air filled small bowel none of which are dilated. Large amount of stool throughout the large bowel. Organs: Double-J ureteric stent on the left with the proximal pigtail formed within the renal pelvis and the distal pigtail within the urinary bladder. Calcification upper pole left kidney. 7 mm. Stable. Vasculature: Small calcification adjacent to the double-J ureteric stent proximally. Bones/joints: See Organs finding. XR/XR KUB [id number] IMPRESSION: 1. Bowel gas pattern is nonspecific. Air filled large bowel including distal rectal gas. Scattered loops of air filled small bowel none of which are dilated. 2. Large amount of stool throughout the large bowel.
== END 2020-01-20 10:17 | disposition home or self-care (01) ==
PROVIDERS: Family Provider Electrodiagnostic Medicine; PCP Electrodiagnostic Medicine; Visit Provider Urology
DX: N20.0 Calculus of kidney (principal); N20.1 Calculus of ureter; Z96.0 Presence of urogenital implants
CPT/HCPCS: 74018; 81001

== ENCOUNTER 2020-03-23 08:31 | Outpatient (CLI) | payer MEDICARE, SELFPAY ==
--- NOTE | 2020-03-23 08:15 | XR_ITS ---
WS: [id number] KUB, 03/23/2020 Clinical Data: URETERAL STONE Comparison: KUB, 01/20/2020. Findings: The left ureteral stent has been removed. There is a 0.7 cm calcification overlying the left kidney u nchanged. No right renal calcifications are seen. There are small sutures overlying the sacrum from surgery. XR/XR KUB [id number] Impression: No change in probable left renal calculus.
== END 2020-03-23 08:32 | disposition home or self-care (01) ==
LOC: RAD 08:35
PROVIDERS: PCP Electrodiagnostic Medicine; Visit Provider Urology
DX: N20.1 Calculus of ureter (principal); N20.0 Calculus of kidney
CPT/HCPCS: 74018; 81001

== ENCOUNTER 2020-05-07 07:23 | Outpatient (CLI) | payer MEDICARE, SELFPAY ==
--- NOTE | 2020-05-07 07:15 | XRR_ITS ---
PROCEDURE INFORMATION: Exam: XR Abdomen, 1 View Exam date and time: 05/07/2020 7:40 AM Age: 69 years old Clinical indication: Condition or disease; Kidney or ureter condition; Calculus (stone) in ureter; Prior surgery; Surgery date: 1-6 months; Surgery type: Left ureteral stone 2-3 months ago TECHNIQUE: Imaging protocol: XR of the abdomen. Views: Frontal supine view of the abdomen. 1 View. COMPARISON: CR XR KUB [id number] 03/23/2020 8:38 AM FINDINGS: Gastrointestinal tract: bowel gas pattern is nonspecific. Air filled large bowel including distal rectal gas. Moderate amount stool throughout the large bowel. Organs: 7-8 mm calcification projects over the upper pole of the left kidney. Small calcification of approximately 5 mm x 2 mm adjacent to the transverse process of L4. Possibly ureteric. Bones/joints: See Organs finding. XR/XR KUB [id number] IMPRESSION: 1. Bowel gas pattern is nonspecific. Air filled large bowel including distal rectal gas. 2. Moderate amount stool throughout the large bowel. 3. 7-8 mm calcification projects over the upper pole of the left kidney. Small calcification of approximately 5 mm x 2 mm adjacent to the transverse process of L4. Possibly ureteric. Correlate.. Stable calcification left pelvis.
== END 2020-05-07 07:24 | disposition home or self-care (01) ==
LOC: RAD 07:27
PROVIDERS: PCP Electrodiagnostic Medicine; Visit Provider Urology
DX: N20.1 Calculus of ureter (principal); N20.0 Calculus of kidney
CPT/HCPCS: 74018; 81003; 87635

== ENCOUNTER 2020-05-08 09:52 | Outpatient (CLI) | payer MEDICARE, SELFPAY ==
--- NOTE | 2020-05-08 11:30 | CT_ITS ---
WS: [id number] CT ABDOMEN PELVIS TECHNIQUE: Noncontrast CT of the abdomen and pelvis with coronal and sagittal reformatted images. CLINICAL INFORMATION: RENAL CALCULUS COMPARISON: CT 1 4,019 DLP: 590.[address] scans at [facility] use at least one of these dose optimization techniques: automat ed exposure control; mA and/or kV adjustment per patient size (includes targeted exams where dose is matched to clinical indication); or iterative reconstruction. FINDINGS: Bilateral renal cortical atrophy with cortical scarring. No hydronephrosis in either kidney. Left pro ximal ureteral calculus measuring 5 mm is unchanged position since the prior examination. Obstructive changes have resolved. No inflammatory stranding or edema. Stable left renal parenchymal calculus me asuring 6 mm. No obstructing right renal or ureteral calculi. A few tiny calyceal tip calculi bilater ally. Right renal cortical cyst measuring 1.7 cm with calcifications unchanged. Noncontrast liver is normal. Normal noncontrast gallbladder. Small esophageal hiatal hernia. Noncontr ast spleen is normal. Fatty atrophy of the pancreas. Lung bases are well aerated. Normal caliber abdo juanito aorta. Aortic calcification. Normal sigmoid colon. No evidence of high-grade small or large bow el obstruction. Tiny fat-containing umbilical hernia. CT/CT kidney stone [id number] IMPRESSION: 1. 5 mm left proximal ureteral calculus is unchanged in position since the matt or CT. Obstructive changes have resolved. 2. Stable left renal parenchymal calculus measuring 6 mm. 3. Bilateral renal cortical atrophy. No hydronephrosis. 4. Stable right renal cyst measuring 1.7 CM. 5. Small esophageal hiatal hernia. 6. No other significant changes from previous.
== END 2020-05-08 09:53 | disposition home or self-care (01) ==
LOC: RAD 09:55
PROVIDERS: PCP Electrodiagnostic Medicine; Visit Provider Urology
DX: N20.0 Calculus of kidney (principal); K44.9 Diaphragmatic hernia without obstruction or gangrene; N28.1 Cyst of kidney, acquired; N26.1 Atrophy of kidney (terminal); N20.1 Calculus of ureter
CPT/HCPCS: 74176

== ENCOUNTER 2020-05-14 13:31 | Day surgery (SDC) | payer MEDICARE, SELFPAY ==
[2020-05-11 10:43] VITALS: BMI 21.6
[2020-05-14] VITALS (8 sets, daily range): BP systolic 93–174; BP diastolic 52–96; PULSE 62–88; RESP 16–18; TEMP 36.1–37.1; O2SAT 96–99
--- NOTE | 2020-05-14 13:51 | XR_ITS ---
WS: [id number] ABDOMEN: SUPINE FILM HISTORY: Preop left ESWL COMPARISON: 05/07/2020, CT 05/08/2020 Normal bowel gas pattern. No bone abnormality. Right kidney: No renal or ureteral stone identified. Left kidney: 8 mm calcification projects over the upper pole of the LEFT kidney. Additional 5 mm calc ification overlying the LEFT L4 transverse process within the ureter as seen on the prior CT. XR/XR KUB [id number] IMPRESSION: 1. Mid LEFT ureter calcification measuring 5 mm. 2. Unchanged 8 mm calcification upper pole LEFT kidney.
[2020-05-14] MEDS: sodium chloride 0.9% 1,000 ML 30 ML IV (14:30)
--- NOTE | 2020-05-14 15:03 | P.ANESASSM_ITS ---
Pre-Anesthetic Assessment Pre-Anesthetic Assessment: Height/Weight: Height 1.65 m Weight 58.967 kg Temp Pulse Resp BP Pulse Ox 98.5 F 67 16 174/82 98 05/14/20 14:57 05/14/20 14:57 05/14/20 14:57 05/14/20 14:57 05/14/20 14:57 Preop Diagnosis: Left mid ureteral calculus Proposed Procedure: Operation Date: 05/14/20 13:05 Proposed Procedures p ESWL 97126 34342 N20.0 N20.1(Left) - Deepak Moraes MD s possible Cystoscopy(Not Applicable) - Deepak Moraes MD s Ureteral Stent Placement(Not Applicable) - Deepak Moraes MD Familial anesthetic complications: None Was Beta Tashia taken within 24 h ours: Yes Last intake: Intake Last Liquid Date 05/14/20 Last Liquid Time 07:30 Last Solid Date 05/12/20 Last Solid Time 17:00 Social: Social History: No alcohol and No tobacco Exam: Pre-Anes Outpt Exam: alert, oriented x 3, clear to auscultation bilaterally and regular rate & rhythm Airway: Cervical ROM: WNL MP: 3 Dentition: Full and Other (filling fell out in front) CV/HEM: CV/HEM: HTN GI: GI: GERD and Hiatus hernia Musc/skel: Musc/skel: OA/DJD Neuropsych: Comments: optic neuropathy d/t HTN Anesthetic Plan: ASA status: 2 Anesthesia: General Risk of > 500 ml blood loss (7ml/kg in children): No Meds/Allergies Current Medications: Current Medications Generic Name Dose Route Start Last Admin Trade Name Freq PRN Reason Stop Dose Admin Sodium Chloride 1,000 mls @ 30 ml s/hr 05/14/20 14:00 05/14/20 14:30 Sodium Chloride 0.9% IV 05/15/20 13:59 30 mls/hr .Q24H KALE Administration PFSH Anesthesia PFSH: Medical History Arthritis Left ureteral calculus Optic neuropathy Renal calculus Surgical History H/O dilation and curettage History of hysterectomy Status post extracorporeal shock wave therapy Family History Father , in his 70's Myocardial infarction (lateral wall) Mother , at age 83 Cancer oral Social History Smoking and tobacco status: never smoked Alcohol intake: never Marital status: Current occupational status: retired History of recent travel: No Data Anesthesia Cardiac Studies: No Data to Display
[2020-05-14] MEDS: midazolam 1 mg/mL INJ 2 mL 2 MG IVP (15:19)
--- NOTE | 2020-05-14 15:37 | P.HPUD_ITS ---
Surgery/Procedure H&P Update DATE OF PROCEDURE: May 14, 2020 DATE H&P PERFORMED: 05/08/20 H&P UPDATE INFORMATION: I have reviewed H&P completed within last 30 days, I have examined patient prior to procedure, No changes to prior documentation and H&P is in [facility] E[facility] on date indicated CHANGES TO PREVIOUS DOCUMENTATION: Stone is readily visible on today's KUB. PREOP DIAGNOSIS: Left mid ureteral calculus PLANNED PROCEDURE: Operation Date: 05/14/20 13:05 Proposed Procedures p ESWL [id number] 15017 N20.0 N20.1(Left) - Deepak Moraes MD s possible Cystoscopy(Not Applicable) - Deepak Moraes MD s Ureteral Stent Placement(Not Applicable) - Deepak Moraes MD
--- NOTE | 2020-05-14 15:40 | P.OP_ITS ---
Operative Report Date of procedure: May 14, 2020 Pre-op Diagnosis: Left mid ureteral calculus Post-op diagnosis: same Procedure Done: 1. Extracorporeal shockwave lithotripsy to left mid ureteral calculus Pathology: none sent Surgeon: Dimitry Reel Stripper: Lithotripsy Instructor Business Education: Mello [place] Anesthesia: General Estimated blood loss: None Complications: None Findings: Excellent change. 2000 shocks administered. Not visualized at the completion of the procedure. Condition: stable Disposition: PACU Brief History: Blanche is a very pleasant 69-year-old white female who was recent diagnosed with a large left mid ureteral stone and probably a second stone. On 01/09/2020 she underwent ureteral stent placement and ESWL with excellent change to the larger of the 2 stones. There was a small fragment that seem to remain in this probably the second stone it was felt to be small enough that it would almost certainly pass and the stent was removed but the stone failed to pass. She has not had significant symptoms related to it but has had some intermittent milder symptoms. Eventually a follow-up CT scan was performed to confirm stone location and it did. She is admitted now to outpatient surgery for ESWL possible stent to the remaining fragment/second stone. Procedure: After routine preoperative evaluation examination and obtaining of informed consent she was taken to the operating suite on 05/14/2020 where general anesthesia was administered without difficulty after appropriate timeout was performed, SCDs confirmed to be functioning, preoperative antibiotics administer ed, beta-sandra protocol confirmed. Positioned on the Dornier unit in supine position such that the stone was located at the focal point utilizing biplanar fluoroscopy. Shockwave therapy was initiated and intensity of 1 and advanced an intensity of 4 beginning also at a rate of 70 with later advancement to 90. The stone was easily focused upon. Good change was noted early in the treatment. At the completion of the procedure the stone was very difficult to see at all. At that point it was decided to not leave a stent A total of 2000 shocks were administered. She tolerated procedure well without complications and was awakened in the operating room and returned to recovery in stable condition.
[2020-05-14] MEDS: levofloxacin-dextrose 5 % 500 MG/100 ML PREMIX 100 MG IV (15:44)
--- NOTE | 2020-05-14 18:00 | ANE.PACU2 ---
Inpatient post-anesthesia follow up: Airway intact: Yes Vital signs: Temperature 98.2 F Pulse Rate 84 Respiratory Rate 18 Blood Pressure 157/85 Pulse Oximetry 96 Oxygen Delivery Me thod Room Air Oxygen Flow Rate 8 Fraction of Inspir ed Oxygen Hydration adequate: Yes Nausea and vomiting: No Pain level: 2 Mental status: Baseline
== END 2020-05-14 17:30 | disposition home or self-care (01) ==
PROVIDERS: PCP Electrodiagnostic Medicine; Visit Provider Urology
PROC: (CPT 50590; principal; 2020-05-14 14:45)
DX: N20.1 Calculus of ureter (principal); I10 Essential (primary) hypertension; K21.9 Gastro-esophageal reflux disease without esophagitis; M19.90 Unspecified osteoarthritis, unspecified site
CPT/HCPCS: 50590; 12345; 74018; J1956; J2250; J2405; J2704; J3010; J3490; J7030

== ENCOUNTER 2020-06-20 13:49 | Outpatient (CLI) | payer MEDICARE, SELFPAY ==
--- NOTE | 2020-06-20 13:30 | XR_ITS ---
WS: [id number] KUB, 06/20/2020 Clinical Data: stones Comparison: KUB, 05/14/2020. Findings: No abnormal intraabdominal masses are seen. There is no dilatated small bowel or evidence of obstruct ion. The 0.8 cm calcification overlying the upper pole left kidney is not changed. There is no calcificati on adjacent to the left L4 transverse process. There is fecal material throughout the colon. XR/XR KUB [id number] Impression: 1. No change in calcification overlying upper pole of left kidney. 2. Left mid ureteral calcification not seen.
== END 2020-06-20 13:50 | disposition home or self-care (01) ==
LOC: RAD 13:55
PROVIDERS: PCP Electrodiagnostic Medicine; Visit Provider Urology
DX: N20.1 Calculus of ureter (principal)
CPT/HCPCS: 74018; 81003

== ENCOUNTER 2020-07-10 10:13 | Outpatient (CLI) | payer MEDICARE, SELFPAY ==
--- NOTE | 2020-07-10 10:17 | MM_ITS ---
WS: [id number] BILATERAL DIGITAL SCREENING MAMMOGRAPHY WITH CAD CLINICAL INFORMATION: SCREENING HISTORY: Screening mammogram. No current complaints. COMPARISON: March 08, 2019 TECHNIQUE: Bilateral CC and MLO views. FINDINGS: The breasts are composed of heterogeneous fibroglandular density tissue, which can limit the detectio n of small underlying mass lesions. No suspicious mass, asymmetry, calcifications, or architectural d istortion. No evidence of malignancy. Punctate and lucent centered calcifications. MM/[place] [id number] IMPRESSION: BI-RADS: 2-Benign FOLLOW UP: 1 Year Follow-up Recommend return to annual screening mammography.
== END 2020-07-10 10:14 | disposition home or self-care (01) ==
LOC: RADSHAW 10:15
PROVIDERS: PCP Electrodiagnostic Medicine; Visit Provider Electrodiagnostic Medicine
DX: Z12.31 Encounter for screening mammogram for malignant neoplasm of breast (principal)
CPT/HCPCS: 77067

== ENCOUNTER 2020-12-03 11:31 | Outpatient (CLI) | payer MEDICARE, SELFPAY ==
--- NOTE | 2020-12-03 11:42 | XRR_ITS ---
PROCEDURE INFORMATION: Exam: XR Left Wrist Exam date and time: 12/03/2020 11:42 AM Age: 70 years old Clinical indication: Pain and injury or trauma; Fall; Blunt trauma (contusions or hematomas); Left; Patient HX: Fell 2 weeks pain to medial wrist; Additional info: L wrist pain TECHNIQUE: Imaging protocol: XR Left wrist. Views: 3 or more views. COMPARISON: No relevant prior studies available. FINDINGS: Bones/joints: Mild degenerative changes are present with mild joint space narrowing and tiny osteophytes. No fracture, dislocation or other acute abnormality. Soft tissues: Normal. XR/XR wrist LT min 3V* [id number] IMPRESSION: Mild degenerative disease. No acute abnormality.
== END 2020-12-03 11:32 | disposition home or self-care (01) ==
LOC: RAD 11:39
PROVIDERS: PCP Electrodiagnostic Medicine; Visit Provider Electrodiagnostic Medicine
DX: M25.532 Pain in left wrist (principal)
CPT/HCPCS: 73110

== ENCOUNTER 2021-09-17 08:22 | Outpatient (CLI) | payer MEDICARE, SELFPAY ==
--- NOTE | 2021-09-17 08:57 | MM_ITS ---
WS: [id number] BILATERAL SCREENING 3D TOMOSYNTHESIS DIGITAL MAMMOGRAM WITH CAD HISTORY: SCREENING COMPARISON: 07/10/2020 and 03/08/2019 Bilateral CC and MLO views submitted. Computer aided detection analyzed. Breast composition: There are scattered areas of fibroglandular density. No suspicious masses, microc alcifications or architectural distortion. Soft tissue calcifications in each breast. MM/[place] [id number] IMPRESSION: BI-RADS: 2-Benign FOLLOW UP: 1 Year Follow-up
== END 2021-09-17 08:23 | disposition home or self-care (01) ==
LOC: RADSHAW 08:24
PROVIDERS: PCP Electrodiagnostic Medicine; Visit Provider Electrodiagnostic Medicine
DX: Z12.31 Encounter for screening mammogram for malignant neoplasm of breast (principal)
CPT/HCPCS: 77063; 77067

== ENCOUNTER 2022-02-21 13:56 | Outpatient (CLI) | payer MEDICARE, SELFPAY ==
--- NOTE | 2022-02-21 14:12 | XR_ITS ---
WS: [id number] SCREENING DEXA SCAN [employer] CLINICAL INFORMATION: POSTMENOPAUSAL COMPARISON: November 12, 2016 FINDINGS: The L1-L4 bone mineral density measures 1.063 g/cm2. This corresponds to a T score score of -1.0 and Z score of 0.9. Left femoral neck bone mineral density measures 0.737 g/cm2. This corresponds to a T score of -2.2 an d Z score of -0.5. Right femoral neck bone mineral density measures 0.716 g/cm2. This corresponds to a T score -2.3of an d Z score of -0.7. Mean femoral neck bone mineral density measures 0.726 g/cm2. This corresponds to a T score of -2.2 an d Z score of -0.6. XR/XR DEXA axial skeleton* [id number] IMPRESSION: Osteopenia lumbar spine lower end of the range. Osteopenia femoral necks approa ronaldo osteoporosis. Patient's FRAX calculated 10 year probability for major osteoporotic fracture i s 31.4 % and osteoporotic hip fracture is 14.3%. Bone mineral density lumbar spine has decreased -0.7% since 2017. Bone mineral density in the femoral necks has decreased -1.5% since 2017.
== END 2022-02-21 13:57 | disposition home or self-care (01) ==
LOC: RAD 13:58
PROVIDERS: PCP Electrodiagnostic Medicine; Visit Provider Electrodiagnostic Medicine
DX: Z78.0 Asymptomatic menopausal state (principal); M85.88 Other specified disorders of bone density and structure, other site
CPT/HCPCS: 77080

== ENCOUNTER 2022-10-01 08:48 | Outpatient (CLI) | payer MEDICARE, SELFPAY ==
--- NOTE | 2022-10-01 08:55 | MM_ITS ---
WS: [id number] BILATERAL SCREENING DIGITAL TOMOSYNTHESIS MAMMOGRAM WITH CAD HISTORY: SCREENING COMPARISON: 09/17/2021, 07/10/2020, 03/08/2019 and 11/26/2012 Bilateral CC and MLO views with tomosynthesis and synthetic mammography submitted. Computer aided det ection analyzed. Breast composition: There are scattered areas of fibroglandular density. No suspicious masses, microc alcifications or architectural distortion. Focal asymmetry seen on the RIGHT MLO central to the nippl e has been present on prior studies. MM/[place] [id number] IMPRESSION: BI-RADS: 2-Benign FOLLOW UP: 1 Year Follow-up
== END 2022-10-01 08:49 | disposition home or self-care (01) ==
LOC: RAD 08:50
PROVIDERS: PCP Electrodiagnostic Medicine; Visit Provider Electrodiagnostic Medicine
DX: Z12.31 Encounter for screening mammogram for malignant neoplasm of breast (principal)
CPT/HCPCS: 77063; 77067

== ENCOUNTER 2023-11-03 08:19 | Outpatient (CLI) | payer MEDICARE, SELFPAY ==
--- NOTE | 2023-11-03 08:23 | MM_ITS ---
WS: [id number] BILATERAL 3D TOMOSYNTHESIS DIGITAL SCREENING MAMMOGRAPHY WITH CAD CLINICAL INFORMATION: SCREENING HISTORY: Screening mammogram. No current complaints. COMPARISON: 2022 TECHNIQUE: Bilateral CC and MLO views. FINDINGS: Scattered fibroglandular densities bilaterally. No suspicious focal mass, asymmetry, calcifications, or architectural distortion. No evidence of malignancy. Soft tissue calcifications bilaterally simila r to previous. Vascular calcification. MM/[place] [id number] IMPRESSION: BI-RADS: 2-Benign FOLLOW UP: 1 Year Follow-up Recommend return to annual screening mammography.
== END 2023-11-03 08:20 | disposition home or self-care (01) ==
LOC: RAD 08:20
PROVIDERS: PCP Electrodiagnostic Medicine; Visit Provider Electrodiagnostic Medicine
DX: Z12.31 Encounter for screening mammogram for malignant neoplasm of breast (principal); R92.323 Mammographic fibroglandular density, bilateral breasts; R92.1 Mammographic calcification found on diagnostic imaging of breast
CPT/HCPCS: 77063; 77067

== ENCOUNTER 2024-01-26 16:39 | Emergency (ER) | payer MEDICARE, SELFPAY ==
[2024-01-26 16:54] VITALS: BP 128/74; PULSE 107; RESP 16; TEMP 37.8; O2SAT 96; BMI 23.3
[2024-01-26 17:11] LABS: Basophils # 0.1 10^3/uL (0.0-0.1); Basophils % 0.9 %; Hematocrit 39.1 % (36-47); Lymphocytes # 0.4 10^3/uL (0.8-4.8); Lymphocytes % 6.5 %; Mean Corpuscular HGB Conc 33.2 g/dL (30-55); Mean Corpuscular Hemoglobin 31.8 pg (27-33); Mean Corpuscular Volume 95.6 fl (85-98); Mean Platelet Volume 9.5 fL (7.4-10.4); Monocytes # 0.3 10^3/uL (0.2-0.9); Monocytes % 5.9 %; Neutrophils # 4.58 10^3/uL (1.8-7.7); Neutrophils % 85.2 %; Nucleated Red Blood Cells % 0 %; Platelet Count 168 10^3/cmm (157-399); Red Blood Count 4.09 10^6/uL (3.85-5.65); Red Cell Distribution Width 12.6 % (12.1-15.1); White Blood Count 5.38 10^3/uL (3.29-11.43)
--- NOTE | 2024-01-26 17:33 | ED_ITS ---
Documented by User: Cosmo Richardson, 01/28/24 07:01 HPI - Nausea/Vomiting/Diarrhea 2 General: Chief complaint: Nausea/Vomiting/Diarrhea Stated complaint: n/v, fever, abd pain, headache Time Seen by Provider: 01/26/24 17:22 History of Present Illness: 73-year-old female presents emergency ro om complaining of nausea fever headache abdominal pain has had some vomiting this been going on for the last day and 1/2 to 2 days. She is not had any bloody stools. She does report she has a history of ulcerative colitis but has not had any flareups recently. She denies any hematochezia or melena. Describes the vomiting as watery or bilious. No fever sweats or chills. Associated nausea: Yes Associated symtoms: Reports nausea; Denies chest pain or dysuria Related Data Home Medications Medication Instructions Recorded Confirmed citalopram 20 mg tablet 20 mg PO DAILY 12/27/19 01/02/23 famotidine 10 mg tablet (Pepcid AC) 10 mg PO DAILY 12/27/19 01/02/23 metoprolol succinate 50 mg 50 mg PO BEDTIME 12/27/19 01/02/23 tablet,extended release 24 hr acetaminophen 325 mg tablet 325 mg PO QID PRN Headache 01/20/20 01/02/23 (Tylenol) lisinopril 20 mg tablet 20 mg PO DAILY 02/11/22 01/02/23 omeprazole 40 mg capsule,delayed 40 mg PO DAILY 01/02/23 01/02/23 release Previous Rx's Medication Instructions Recorded mesalamine 1.2 gram tablet,delayed 1.2 g PO DAILY 4 weeks #30 tabs 01/02/23 release (Lialda) ondansetron HCl 4 mg tablet 4 mg PO Q8H PRN nausea and 01/26/24 vomiting #14 tabs Allergies Allergy/AdvReac Type Severity Reaction Status Date / Time Sulfa (Sulfonamide Allergy ADR-Nausea Verified 01/02/23 07:55 Antibiotics) morphine AdvReac Mild ADR-Nausea Verified 01/02/23 07:55 Review of Systems 2 Const: Denies: fever(s) or chills Card: Denies: chest pain Resp: Denies: dyspnea GI: Reports: abdominal pain, nausea and vomiting; Denies: hematemesis, coffee ground emesis, hematochezia or melena : Denies: dysuria, urinary frequency or urinary urgency Musc: Denies: neck pain or back pain Skin/Breast: Denies: rash PFSH ED 2 PFSH: Medical History Crohn's colitis Left ureteral calculus Renal calculus Arthritis Optic neuropathy Surgical History H/O dilation and curettage History of hysterectomy Status post extracorporeal shock wave therapy Family History Father , in his 70's Myocardial infarction (lateral wall) Mother , at age 83 Cancer oral Social History Smoking and tobacco/nicotine status: never used tobacco/nicotine Alcohol intake: never Marital status: Current occupational status: retired Physical Exam 2 Const: GENERAL APPEARANCE: cooperative ORIENTATION/CONSCIOUSNESS: Yes awake, Yes oriented to person, Yes oriented to place and Yes oriented to time HENMT: COMMON NORMALS: normocephalic, atraumatic and hearing grossly normal bilaterally HEAD & SCALP: normocephalic and atraumatic Resp: COMMON NORMALS: normal respiratory effort, No retractions, No use of accessory muscles and clear to auscultation bilaterally AUSCULTATION: clear to auscultation bilaterally Cardio: COMMON NORMALS: regular rate, regular rhythm and No murmurs present (Cardio) RATE: regular rate RHYTHM: regular rhythm GI: COMMON NORMALS: No hepatosplenomegaly present AUSCULTATION: Yes normoactive bowel sounds PALPATION: Yes Tenderness to palpation present (GI) (Generalized), No Guarding due to palpation present (GI) and Yes No hepatosplenomegaly present Extremity: COMMON NORMALS: normal to inspection, capillary refill normal, no clubbing, cyanosis or edema, no calf tenderness and no pedal edema Neuro: SENSORIUM/ORIENTATION: Yes oriented to person, Yes oriented to place and Yes oriented to time Skin: COMMON NORMALS: no rashes or lesions noted GENERAL SKIN EXAM: no rashes or lesions noted Course 2 Vital Signs: Vital signs: Vital Signs Temperature 98.8 F 01/26/24 21:08 Pulse Rate 88 01/26/24 22:26 Respiratory Rate 18 01/26/24 22:26 Blood Pressure 122/68 01/26/24 22:26 Pulse Oximetry 94 01/26/24 22:26 Oxygen Delivery Me thod Room Air 01/26/24 21:08 MDM - Nausea/Vomiting/Diarrhea Medical Decision Making Care signed out to Dr. Ruiz at change of shift. See final notes for diagnosis and disposition. Lab Data 01/26/24 17:03 01/26/24 17:03 Radiology Impressions Abdomen/Pelvis CT 01/26/24 17:47 IMPRESSION: 1. No bowel obstruction or inflammatory process associated with the bowel. 2. No free air or significant free fluid in the abdomen or pelvis. 3. No evidence of appendicitis. COMMENTS: Consistent with the [employer]'s Incidental Findings Committee white paper (J Am Jamaal Radiol 2018): Any incidental renal lesion less than 1 cm or classified as too small to characterize, or any incidental cystic renal lesion characterized as simple-appearing, is likely benign. No follow-up imaging is recommended for these lesions per consensus recommendations based on imaging criteria. Chest X-Ray 01/26/24 17:55 IMPRESSION: No acute findings. Laboratory Results WBC 5.38 10^3/uL (3.29-11.43) 01/26/24 17:03 RBC 4.09 10^6/uL (3.85-5.65) 01/26/24 17:03 Hgb 13.00 g/dL (11.27-16.99) 01/26/24 17:03 Hct 39.1 % (36-47) 01/26/24 17:03 MCV 95.6 fl (85-98) 01/26/24 17:03 MCH 31.8 pg (27-33) 01/26/24 17:03 MCHC 33.2 g/dL (30-55) 01/26/24 17:03 RDW 12.6 % (12.1-15.1) 01/26/24 17:03 Plt Count 168 10^3/cmm (157-399) 01/26/24 17:03 MPV 9.5 fL (7.4-10.4) 01/26/24 17:03 Neut % (Auto) 85.2 % 01/26/24 17:03 Lymph % (Auto) 6.5 % 01/26/24 17:03 Crisp % (Auto) 5.9 % 01/26/24 17:03 Eos % (Auto) 0.0 % 01/26/24 17:03 Baso % (Auto) 0.9 % 01/26/24 17:03 Neut # (Auto) 4.58 10^3/uL (1.8-7.7) 01/26/24 17:03 Lymph # (Auto) 0.4 10^3/uL (0.8-4.8) L 01/26/24 17:03 Crisp # (Auto) 0.3 10^3/uL (0.2-0.9) 01/26/24 17:03 Eos # (Auto) 0.0 10^3/uL (0.0-0.8) 01/26/24 17:03 Baso # (Auto) 0.1 10^3/uL (0.0-0.1) 01/26/24 17:03 Nucleated RBC % (auto) 0 % 01/26/24 17:03 Nucleated RBCs # 0.0 /100WBC 01/26/24 17:03 Sodium 139 mmol/L (136-145) 01/26/24 17:03 Potassium 4.2 mmol/L (3.5-5.1) 01/26/24 17:03 Chloride 103 mmol/L (98-107) 01/26/24 17:03 Carbon Dioxide 22 mmol/L (22-29) 01/26/24 17:03 Anion Gap 18.2 (5-19) 01/26/24 17:03 BUN 17 mg/dL (8-23) 01/26/24 17:03 Creatinine 1.1 mg/dL (0.5-0.9) H 01/26/24 17:03 GFR Calculation Not Reportable 01/26/24 17:03 Glucose 157 mg/dL (65-115) H 01/26/24 17:03 Calculated Osmolality 293 mOsm/kg (285-295) 01/26/24 17:03 Lactic Acid 1.4 mmol/L (0.5-2.2) 01/26/24 18:18 Calcium 8.9 mg/dL (8.5-10.5) 01/26/24 17:03 Total Bilirubin 0.6 mg/dL (0.15-1.2) 01/26/24 17:03 AST 42 U/L (0-32) H 01/26/24 17:03 ALT 26 U/L (0-33) 01/26/24 17:03 Alkaline Phosphatase 94 U/L (35-105) 01/26/24 17:03 Total Protein 6.8 g/dL (6.6-8.7) 01/26/24 17:03 Albumin 4.1 g/dL (3.5-5.2) 01/26/24 17:03 Globulin 2.7 g/dL (1.3-4.6) 01/26/24 17:03 Lipase 17 U/L (13-60) 01/26/24 17:03 Urine Color Yellow (Yellow) 01/26/24 19:30 Urine Appearance Clear (CLEAR) 01/26/24 19:30 Urine pH 6.0 (5-7) 01/26/24 19:30 Ur Specific [place] 1.044 (1.005-1.030) H 01/26/24 19:30 Urine Protein Negative (Negative) 01/26/24 19:30 Urine Glucose (UA) Negative (Normal) 01/26/24 19:30 Urine Ketones 1+ (Negative) H 01/26/24 19:30 Urine Blood 3+ (Negative) A 01/26/24 19: Urine Nitrate Negative (Negative) 01/26/24 19:30 Urine Bilirubin Negative (Negative) 01/26/24 19:30 Urine Urobilinogen 1.0 mg/dL (Negative) 01/26/24 19:30 Ur Leukocyte Esterase Negative (Negative) 01/26/24 19:30 Urine RBC 21-50 /hpf (0-2) H 01/26/24 19:30 Urine WBC 0-5 /hpf (0-5) 01/26/24 19:30 Ur Squamous Epith Cells 0-5 /hpf (0-5) 01/26/24 19:30 Amorphous Sediment Not Reportable 01/26/24 19:30 Urine Bacteria None seen /hpf (NONE) 01/26/24 19:30 Hyaline Casts 0-4 /lpf H 01/26/24 19:30 Coronavirus 229E (PCR) Not detected (NOT DETECT) 01/26/24 19:30 SARS-CoV-2 (PCR) Not detected (NOT DETECT) 01/26/24 19:30 Discharge Plan Discharge Patient Disposition: Home Clinical Impression: Gastroenteritis Condition: Stable Prescriptions: New ondansetron HCl 4 mg tablet 4 mg PO Q8H PRN (Reason: nausea and vomiting) Qty: 14 0RF No Action acetaminophen [Tylenol] 325 mg tablet 325 mg PO QID PRN (Reason: Headache) metoprolol succinate 50 mg tablet extended release 24 hr 50 mg PO BEDTIME citalopram 20 mg tablet 20 mg PO DAILY famotidine [Pepcid AC] 10 mg tablet 10 mg PO DAILY lisinopril 20 mg tablet 20 mg PO DAILY omeprazole 40 mg capsule,delayed release(DR/EC) 40 mg PO DAILY mesalamine [Lialda] 1.2 gram tablet,delayed release (DR/EC) 1.2 g PO DAILY 28 Days Qty: 30 5RF Discharge Orders: Discharge ED (Routine); Ordered 01/26/24 Ordered By: Luca Ruiz Referrals: Karlo Ennis DO [Primary Care Provider] - 1 week Patient Instructions: Dehydration (DC), Gastroenteritis (ED) Activity Restrictions/Additional Instructions: A prescription for Zofran which is antinausea medicine has been called into your pharmacy. Please pick it up and take it as directed. Otherwise please push plenty of clear liquids and advance your diet as tolerated. Please follow-up with your family practice doctor within next 7 to 10 days for further evaluation and treatment. Coding Level of Care Code ED [employer] for [employer] Documented by User: Luca Ruiz DO 01/26/24 22:18 HPI - Nausea/Vomiting/Diarrhea 2 General: Chief complaint: Nausea/Vomiting/Diarrhea Stated complaint: n/v, fever, abd pain, headache Time Seen by Provider: 01/26/24 17:22 Related Data Home Medications Medication Instructions Recorded Confirmed citalopram 20 mg tablet 20 mg PO DAILY 12/27/19 01/02/23 famotidine 10 mg tablet (Pepcid AC) 10 mg PO DAILY 12/27/19 01/02/23 metoprolol succinate 50 mg 50 mg PO BEDTIME 12/27/19 01/02/23 tablet,extended release 24 hr acetaminophen 325 mg tablet 325 mg PO QID PRN Headache 01/20/20 01/02/23 (Tylenol) lisinopril 20 mg tablet 20 mg PO DAILY 02/11/22 01/02/23 omeprazole 40 mg capsule,delayed 40 mg PO DAILY 01/02/23 01/02/23 release Previous Rx's Medication Instructions Recorded mesalamine 1.2 gram tablet,delayed 1.2 g PO DAILY 4 weeks #30 tabs 01/02/23 release (Lialda) ondansetron HCl 4 mg tablet 4 mg PO Q8H PRN nausea and 01/26/24 vomiting #14 tabs Allergies Allergy/AdvReac Type Severity Reaction Status Date / Time Sulfa (Sulfonamide Allergy ADR-Nausea Verified 01/02/23 07:55 Antibiotics) morphine AdvReac Mild ADR-Nausea Verified 01/02/23 07:55 PFSH ED 2 PFSH: Medical History Crohn's colitis Left ureteral calculus Renal calculus Arthritis Optic neuropathy Surgical History H/O dilation and curettage History of hysterectomy Status post extracorporeal shock wave therapy Family History Father , in his 70's Myocardial infarction (lateral wall) Mother , at age 83 Cancer oral Social History Smoking and tobacco/nicotine status: never used tobacco/nicotine Alcohol intake: never Marital status: Current occupational status: retired Course 2 Vital Signs: Vital signs: Vital Signs Temperature 98.8 F 01/26/24 21:08 Pulse Rate 88 01/26/24 22:26 Respiratory Rate 18 01/26/24 22:26 Blood Pressure 122/68 01/26/24 22:26 Pulse Oximetry 94 01/26/24 22:26 Oxygen Delivery Me thod Room Air 01/26/24 21:08 MDM - Nausea/Vomiting/Diarrhea Medical Decision Making Care signed out to Dr. Ruiz at change of shift. See final notes for diagnosis and disposition. Records reviewed as well as CT scan, physical exam was performed, lab work was discussed with the patient which is essentially benign other than concentrated urine not indicate mild dehydration. Patient be given a diagnosis of gastroenteritis patient was given Zofran which does seem to help. I will be called into the patient's pharmacy. Differential Diagnosis Likely gastroenteritis Medical Records I reviewed the patient's medical records. Lab Data 01/26/24 17:03 01/26/24 17:03 Radiology Impressions Abdomen/Pelvis CT 01/26/24 17:47 IMPRESSION: 1. No bowel obstruction or inflammatory process associated with the bowel. 2. No free air or significant free fluid in the abdomen or pelvis. 3. No evidence of appendicitis. COMMENTS: Consistent with the [employer]'s Incidental Findings Committee white paper (J Am Jamaal Radiol 2018): Any incidental renal lesion less than 1 cm or classified as too small to characterize, or any incidental cystic renal lesion characterized as simple-appearing, is likely benign. No follow-up imaging is recommended for these lesions per consensus recommendations based on imaging criteria. Chest X-Ray 01/26/24 17:55 IMPRESSION: No acute findings. Laboratory Results WBC 5.38 10^3/uL (3.29-11.43) 01/26/24 17:03 RBC 4.09 10^6/uL (3.85-5.65) 01/26/24 17:03 Hgb 13.00 g/dL (11.27-16.99) 01/26/24 17:03 Hct 39.1 % (36-47) 01/26/24 17:03 MCV 95.6 fl (85-98) 01/26/24 17:03 MCH 31.8 pg (27-33) 01/26/24 17:03 MCHC 33.2 g/dL (30-55) 01/26/24 17:03 RDW 12.6 % (12.1-15.1) 01/26/24 17:03 Plt Count 168 10^3/cmm (157-399) 01/26/24 17:03 MPV 9.5 fL (7.4-10.4) 01/26/24 17:03 Neut % (Auto) 85.2 % 01/26/24 17:03 Lymph % (Auto) 6.5 % 01/26/24 17:03 Crisp % (Auto) 5.9 % 01/26/24 17:03 Eos % (Auto) 0.0 % 01/26/24 17:03 Baso % (Auto) 0.9 % 01/26/24 17:03 Neut # (Auto) 4.58 10^3/uL (1.8-7.7) 01/26/24 17:03 Lymph # (Auto) 0.4 10^3/uL (0.8-4.8) L 01/26/24 17:03 Crisp # (Auto) 0.3 10^3/uL (0.2-0.9) 01/26/24 17:03 Eos # (Auto) 0.0 10^3/uL (0.0-0.8) 01/26/24 17:03 Baso # (Auto) 0.1 10^3/uL (0.0-0.1) 01/26/24 17:03 Nucleated RBC % (auto) 0 % 01/26/24 17:03 Nucleated RBCs # 0.0 /100WBC 01/26/24 17:03 Sodium 139 mmol/L (136-145) 01/26/24 17:03 Potassium 4.2 mmol/L (3.5-5.1) 01/26/24 17:03 Chloride 103 mmol/L (98-107) 01/26/24 17:03 Carbon Dioxide 22 mmol/L (22-29) 01/26/24 17:03 Anion Gap 18.2 (5-19) 01/26/24 17:03 BUN 17 mg/dL (8-23) 01/26/24 17:03 Creatinine 1.1 mg/dL (0.5-0.9) H 01/26/24 17:03 GFR Calculation Not Reportable 01/26/24 17:03 Glucose 157 mg/dL (65-115) H 01/26/24 17:03 Calculated Osmolality 293 mOsm/kg (285-295) 01/26/24 17:03 Lactic Acid 1.4 mmol/L (0.5-2.2) 01/26/24 18:18 Calcium 8.9 mg/dL (8.5-10.5) 01/26/24 17:03 Total Bilirubin 0.6 mg/dL (0.15-1.2) 01/26/24 17:03 AST 42 U/L (0-32) H 01/26/24 17:03 ALT 26 U/L (0-33) 01/26/24 17:03 Alkaline Phosphatase 94 U/L (35-105) 01/26/24 17:03 Total Protein 6.8 g/dL (6.6-8.7) 01/26/24 17:03 Albumin 4.1 g/dL (3.5-5.2) 01/26/24 17:03 Globulin 2.7 g/dL (1.3-4.6) 01/26/24 17:03 Lipase 17 U/L (13-60) 01/26/24 17:03 Urine Color Yellow (Yellow) 01/26/24 19:30 Urine Appearance Clear (CLEAR) 01/26/24 19: Urine pH 6.0 (5-7) 01/26/24 19:30 Ur Specific [place] 1.044 (1.005-1.030) H 01/26/24 19:30 Urine Protein Negative (Negative) 01/26/24 19:30 Urine Glucose (UA) Negative (Normal) 01/26/24 19:30 Urine Ketones 1+ (Negative) H 01/26/24 19:30 Urine Blood 3+ (Negative) A 01/26/24 19:30 Urine Nitrate Negative (Negative) 01/26/24 19:30 Urine Bilirubin Negative (Negative) 01/26/24 19: Urine Urobilinogen 1.0 mg/dL (Negative) 01/26/24 19:30 Ur Leukocyte Esterase Negative (Negative) 01/26/24 19:30 Urine RBC 21-50 /hpf (0-2) H 01/26/24 19:30 Urine WBC 0-5 /hpf (0-5) 01/26/24 19:30 Ur Squamous Epith Cells 0-5 /hpf (0-5) 01/26/24 19:30 Amorphous Sediment Not Reportable 01/26/24 19:30 Urine Bacteria None seen /hpf (NONE) 01/26/24 19:30 Hyaline Casts 0-4 /lpf H 01/26/24 19:30 Coronavirus 229E (PCR) Not detected (NOT DETECT) 01/26/24 19:30 SARS-CoV-2 (PCR) Not detected (NOT DETECT) 01/26/24 19:30 All radiology interpretation(s) finalized by discharge Discharge Plan Discharge Patient Disposition: Home Clinical Impression: Gastroenteritis Condition: Stable Prescriptions: New ondansetron HCl 4 mg tablet 4 mg PO Q8H PRN (Reason: nausea and vomiting) Qty: 14 0RF No Action acetaminophen [Tylenol] 325 mg tablet 325 mg PO QID PRN (Reason: Headache) metoprolol succinate 50 mg tablet extended release 24 hr 50 mg PO BEDTIME citalopram 20 mg tablet 20 mg PO DAILY famotidine [Pepcid AC] 10 mg tablet 10 mg PO DAILY lisinopril 20 mg tablet 20 mg PO DAILY omeprazole 40 mg capsule,delayed release(DR/EC) 40 mg PO DAILY mesalamine [Lialda] 1.2 gram tablet,delayed release (DR/EC) 1.2 g PO DAILY 28 Days Qty: 30 5RF Discharge Orders: Discharge ED (Routine); Ordered 01/26/24 Ordered By: Luca Ruiz Referrals: Karlo Ennis DO [Primary Care Provider] - 1 week Patient Instructions: Dehydration (DC), Gastroenteritis (ED) Activity Restrictions/Additional Instructions: A prescription for Zofran which is antinausea medicine has been called into your pharmacy. Please pick it up and take it as directed. Otherwise please push plenty of clear liquids and advance your diet as tolerated. Please follow-up with your family practice doctor within next 7 to 10 days for further evaluation and treatment. Coding Level of Care Code ED [employer] for Dwayne Zavala
[2024-01-26 17:34] LABS: Alanine Aminotransferase 26 U/L (0-33); Albumin Level 4.1 g/dL (3.5-5.2); Alkaline Phosphatase 94 U/L (35-105); Anion Gap 18.2 (5-19); Aspartate Amino Transferase 42 U/L (0-32); Blood Urea Nitrogen 17 mg/dL (8-23); Calcium 8.9 mg/dL (8.5-10.5); Carbon Dioxide 22 mmol/L (22-29); Chloride 103 mmol/L (98-107); Creatinine Clr Calc Pharmacy 43.5631; Globulin 2.7 g/dL (1.3-4.6); Glucose 157 mg/dL (65-115); Lipase 17 U/L (13-60); Osmolality Calculated 293 mOsm/kg (285-295); Potassium 4.2 mmol/L (3.5-5.1); Sodium 139 mmol/L (136-145); Total Bilirubin 0.6 mg/dL (0.15-1.2); Total Protein 6.8 g/dL (6.6-8.7)
--- NOTE | 2024-01-26 17:47 | CTR_ITS ---
PROCEDURE INFORMATION: Exam: CT Abdomen And Pelvis With Contrast Exam date and time: 01/26/2024 5:56 PM Age: 73 years old Clinical indication: Abdominal pain; Additional info: Abd pain TECHNIQUE: Imaging protocol: Computed tomography of the abdomen and pelvis with contrast. Radiation optimization: All CT scans at this facility use at least one of these dose optimization techniques: automated exposure control; mA and/or kV adjustment per patient size (includes targeted exams where dose is matched to clinical indication); or iterative reconstruction. Contrast material: OMNI 350; Contrast volume: 100 ml; Contrast route: INTRAVENOUS (IV); COMPARISON: CT kidney stone [id number] 05/08/2020 9:57 AM RADIATION DOSE METRICS: Total DLP (mGy-cm): 529 FINDINGS: Liver: Normal. No mass. Gallbladder and biliary ducts: Normal. No calcified stones. No ductal dilation. Pancreas: Normal. No ductal dilation. Spleen: Normal. No splenomegaly. Adrenal glands: Normal. No mass. Kidneys and ureters: Bilateral simple appearing renal cysts are present which do not need further follow-up, as well as other subcentimeter hypodensities which are too small to adequately characterize. Stomach and bowel: Unremarkable. No obstruction. No mucosal thickening. Appendix: No evidence of appendicitis. Intraperitoneal space: Small amount of free fluid in the pelvis. Vasculature: Unremarkable. No abdominal aortic aneurysm. Lymph nodes: Unremarkable. No enlarged lymph nodes. Urinary bladder: Unremarkable as visualized. Reproductive: Unremarkable as visualized. Bones/joints: Severe degenerative disc disease at L5-S1. Soft tissues: Unremarkable. CT/CT abdomen pelvis w con* [id number] IMPRESSION: 1. No bowel obstruction or inflammatory process associated with the bowel. 2. No free air or significant free fluid in the abdomen or pelvis. 3. No evidence of appendicitis. COMMENTS: Consistent with the [employer]'s Incidental Findings Committee white paper (J Am Jamaal Radiol 2018): Any incidental renal lesion less than 1 cm or classified as too small to characterize, or any incidental cystic renal lesion characterized as simple-appearing, is likely benign. No follow-up imaging is recommended for these lesions per consensus recommendations based on imaging criteria.
[2024-01-26] MEDS: acetaminophen 500 mg Tablet 1000 MG PO (17:53)
--- NOTE | 2024-01-26 17:55 | XRR_ITS ---
PROCEDURE INFORMATION: Exam: XR Chest Exam date and time: 01/26/2024 6:01 PM Age: 73 years old Clinical indication: Dyspnea and other: N/v; Additional info: Dyspnea/cough TECHNIQUE: Imaging protocol: Radiologic exam of the chest. Views: 1 view. COMPARISON: CR XR chest 1V portable [id number] 07/15/2019 1:26 PM FINDINGS: Lungs: Unremarkable. No consolidation. Pleural spaces: Unremarkable. No pleural effusion. No pneumothorax. Heart/Mediastinum: Unremarkable. No cardiomegaly. Bones/joints: Unremarkable. XR/XR chest 1V portable [id number] IMPRESSION: No acute findings.
[2024-01-26] MEDS: iohexol 350 mg/mL 500 mL Btl (per mL) IV (17:59)
[2024-01-26 18:44] LABS: Lactic Sepsis W/Reflex 1.4 mmol/L (0.5-2.2)
[2024-01-26 19:00] VITALS: BP 143/79; PULSE 82; RESP 18; O2SAT 98
[2024-01-26 20:10] LABS: Charge for UA Resulting for Rev
[2024-01-26 20:14] LABS: Bacteria Urine None Seen /hpf; Hyaline Casts Urine 0-4 /lpf; RBC Urine 21-50 /hpf (0-2); Squamous Epithelial Cell Urine 0-5 /hpf (0-5); WBC Urine 0-5 /hpf (0-5)
[2024-01-26 20:20] LABS: Bilirubin Urine Negative (Negative); Blood Urine 3+ (Negative); Glucose Urine UA Negative (Normal); Ketones Urine 1+ (Negative); Leukocyte Esterase Urine Negative (Negative); Nitrate Urine Negative (Negative); Protein Urine Negative (Negative); Urine Appearance Clear (CLEAR); Urine Color Yellow (Yellow)
[2024-01-26 20:30] LABS: Specific Gravity, Urine 1.044 (1.005-1.030)
[2024-01-26 20:31] LABS: Add Urine Culture? Yes
[2024-01-26] MEDS: ondansetron 2 mg/ML SDV 2 mL 4 MG IVP (21:05)
[2024-01-26 21:08] VITALS: BP 136/75; PULSE 92; RESP 16; TEMP 37.1; O2SAT 98
[2024-01-26 22:08] LABS: Adenovirus Not Detected (NOT DETECT); Chlamydia Pneumoniae Not Detected (NOT DETECT); Coronavirus 229E,HKU1,NL63,OC4 Not Detected (NOT DETECT); Human Metapneumovirus Not Detected (NOT DETECT); Human Rhinovirus/Enterovirus Not Detected (NOT DETECT); Influenza A Not Detected (NOT DETECT); Influenza A H1 Not Detected (NOT DETECT); Influenza A H1-2009 Not Detected (NOT DETECT); Influenza A H3 Not Detected (NOT DETECT); Influenza B Not Detected (NOT DETECT); Mycoplasma Pneumoniae Not Detected (NOT DETECT); Parainfluenza Virus Type 1 Not Detected (NOT DETECT); Parainfluenza Virus Type 2 Not Detected (NOT DETECT); Parainfluenza Virus Type 3 Not Detected (NOT DETECT); Parainfluenza Virus Type 4 Not Detected (NOT DETECT); Respiratory Syncytial Virus A Not Detected (NOT DETECT); Respiratory Syncytial Virus B Not Detected (NOT DETECT); SARS-COV-2 Not Detected (NOT DETECT)
[2024-01-26 22:11] VITALS: BP 122/68; PULSE 87; RESP 16; O2SAT 99
[2024-01-26 22:26] VITALS: BP 122/68; PULSE 88; RESP 18; O2SAT 94
== END 2024-01-26 22:40 | disposition home or self-care (01) ==
PROVIDERS: Emergency Medicine; Emergency Provider Family Medicine; PCP Electrodiagnostic Medicine
DX: K52.9 Noninfective gastroenteritis and colitis, unspecified (principal); Z11.52 Encounter for screening for COVID-19
CPT/HCPCS: 36415; 71045; 74177; 80053; 81003; 81015; 83605; 83690; 85025; 87040; 87086; 87635; 96374; 99285; J2405; J7030; Q9967

== ENCOUNTER 2024-08-31 10:44 | Outpatient (CLI) | payer BC, SELFPAY ==
--- NOTE | 2024-08-31 10:51 | MR_ITS ---
WS: [id number] MRI BRAIN WITH AND WITHOUT CONTRAST HISTORY: ISCHEMIC OPTIC NEUROPATHY COMPARISON: None available. TECHNIQUE: Multiplanar imaging performed through the brain with MultiHance 14 ml's IV. No acute infarcts are seen. Starkey-white matter differentiation is well preserved. Very mild atrophy and small vessel disease. No prior infarct. Minimal hippocampal atrophy. No susceptibility artifacts or prior lacunar infarcts. Ventricles and extra-axial spaces are normal. Clivus and pituitary gland are normal. Visualized posterior fossa and brainstem are also normal. Postcontrast images are negative for masses or vascular malformations. Dural venous sinuses are normal. Paranasal sinuses: Well aerated with no significant disease. Mastoid air cells: Normal. Calvarium and scalp: Normal. MR/MR head wo/w con [id number] IMPRESSION: 1. No acute infarct or hemorrhage. 2. No prior infarcts or volume loss. 3. Minimal small vessel disease and minimal hippocampal atrophy.
[2024-08-31] MEDS: gadobenate dimeglumine 20 mL vial IV (11:37)
== END 2024-08-31 10:45 | disposition home or self-care (01) ==
LOC: RAD 10:48
PROVIDERS: PCP Electrodiagnostic Medicine; Visit Provider Electrodiagnostic Medicine
DX: H47.013 Ischemic optic neuropathy, bilateral (principal); G31.89 Other specified degenerative diseases of nervous system; R93.0 Abnormal findings on diagnostic imaging of skull and head, not elsewhere classified
CPT/HCPCS: 70553

== ENCOUNTER 2024-11-21 07:42 | Outpatient (CLI) | payer BC, SELFPAY ==
--- NOTE | 2024-11-21 07:45 | MM_ITS ---
WS: [id number] BILATERAL SCREENING DIGITAL TOMOSYNTHESIS MAMMOGRAM WITH CAD HISTORY: SCREENING COMPARISON: 11/03/2023, 10/01/2022 and 09/17/2021 Bilateral CC and MLO views with tomosynthesis and synthetic mammography submitted. Computer aided detection analyzed. Breast composition: There are scattered areas of fibroglandular density. No suspicious masses, microcalcifications or architectural distortion. Numerous skin calcifications. MM/MM scr BI tomosynthesis [id number] IMPRESSION: BI-RADS: 2 - Benign. FOLLOW UP: 1 Year Follow-up
== END 2024-11-21 07:43 | disposition home or self-care (01) ==
PROVIDERS: PCP Electrodiagnostic Medicine; Visit Provider Electrodiagnostic Medicine
DX: Z12.31 Encounter for screening mammogram for malignant neoplasm of breast (principal)
CPT/HCPCS: 77063; 77067

== ENCOUNTER 2025-02-28 10:15 | Outpatient (CLI) | payer BC, SELFPAY ==
--- NOTE | 2025-02-28 10:21 | USR_ITS ---
PROCEDURE INFORMATION: Exam: US Bilateral Noninvasive Physiologic Study of the Lower Extremity Arteries, Limited Exam date and time: 02/28/2025 10:09 AM Age: 74 years old Clinical indication: Condition or disease; Peripheral vascular disease; Additional info: Pvd TECHNIQUE: Imaging protocol: Bilateral Limited bilateral noninvasive physiologic studies of lower extremity arteries. Waveforms were obtained and evaluated. Images were documented and archived. Exam is limited. COMPARISON: US renal BI* [id number] 01/02/2020 12:32 PM FINDINGS: Right Ankle-Brachial Index: 0.97 (150/143) Left Ankle-Brachial Index: 1.0 (162 /154) US/CV ankle brachial index [id number] IMPRESSION: No evidence of stenosis or occlusion in the lower extremity.
== END 2025-02-28 10:16 | disposition home or self-care (01) ==
PROVIDERS: PCP Electrodiagnostic Medicine; Visit Provider Electrodiagnostic Medicine
DX: I73.9 Peripheral vascular disease, unspecified (principal)
CPT/HCPCS: 93922